=== PATIENT | female | born 2000 | race Caucasian/White ===

== ENCOUNTER 2021-06-12 23:49 | Emergency (ER) | payer BC ==
[2021-06-12] MEDS ORDERED: Ciprofloxacin 500 MG Tab PO ONE (23:50)
== END 2021-06-13 01:00 | disposition home or self-care (01) ==
LOC: FB.ED 23:49
DX: N10 Acute pyelonephritis (principal)
CPT/HCPCS: 36415; 80053; 81001; 81025; 85025; 87086; 99284; A9270-GY